=== PATIENT | female | born 1985 | race Caucasian/White ===

== ENCOUNTER 2022-04-22 17:29 | Emergency (ER) | payer MEDICAID ==
[~2022-04-22] VITALS: Ht 167.6 cm; Wt 127.0 kg
[2022-04-22 18:17] VITALS: BP_SYST 133
== END 2022-04-23 00:15 | disposition left against medical advice (07) ==
LOC: SED 17:29
DX: J02.9 Acute pharyngitis, unspecified (principal); Z53.21 Procedure and treatment not carried out due to patient leaving prior to being seen by health care provider